=== PATIENT | male | born 1965 | race Caucasian/White ===

== ENCOUNTER → 2020-04-03 10:35 | Outpatient (BNVA) | payer OTHER, SELFPAY | PROVIDERS: Visit Provider Family Medicine | DX: E78.2 Mixed hyperlipidemia (principal); I10 Essential (primary) hypertension; Z12.5 Encounter for screening for malignant neoplasm of prostate | CPT/HCPCS: 80053; 80061; 84443; 85025; G0103 ==

== ENCOUNTER → 2020-07-01 08:24 | Outpatient (BNVA) | payer OTHER, SELFPAY | PROVIDERS: Visit Provider Family Medicine | DX: E78.2 Mixed hyperlipidemia (principal); I10 Essential (primary) hypertension | CPT/HCPCS: 80053; 80061; 85025 ==

== ENCOUNTER → 2020-12-30 10:10 | Outpatient (BNVA) | payer OTHER, SELFPAY | PROVIDERS: Visit Provider Family Medicine | DX: E78.2 Mixed hyperlipidemia (principal); I10 Essential (primary) hypertension | CPT/HCPCS: 80053; 80061; 85025 ==

== ENCOUNTER → 2021-06-30 09:03 | Outpatient (BNVA) | payer OTHER, SELFPAY | PROVIDERS: PCP Family Medicine; Visit Provider Family Medicine | DX: Z12.5 Encounter for screening for malignant neoplasm of prostate (principal); E78.5 Hyperlipidemia, unspecified; I10 Essential (primary) hypertension | CPT/HCPCS: 80053; 80061; 85025; G0103 ==

== ENCOUNTER → 2021-12-29 08:50 | Outpatient (BNVA) | payer OTHER, SELFPAY | PROVIDERS: PCP Family Medicine; Visit Provider Family Medicine | DX: E78.5 Hyperlipidemia, unspecified (principal); I10 Essential (primary) hypertension | CPT/HCPCS: 80053; 80061; 84443; 85025 ==

== ENCOUNTER → 2022-08-03 08:59 | Outpatient (BNVA) | payer OTHER, SELFPAY | PROVIDERS: PCP Family Medicine; Visit Provider Family Medicine | DX: I10 Essential (primary) hypertension (principal); E78.5 Hyperlipidemia, unspecified; Z12.5 Encounter for screening for malignant neoplasm of prostate | CPT/HCPCS: 80053; 80061; 84443; 85025; G0103 ==

== ENCOUNTER → 2023-02-01 09:20 | Outpatient (BNVA) | payer MEDICARE, OTHER, SELFPAY | PROVIDERS: PCP Family Medicine; Visit Provider Family Medicine | DX: I10 Essential (primary) hypertension (principal); E78.5 Hyperlipidemia, unspecified | CPT/HCPCS: 80053; 80061; 85025 ==

== ENCOUNTER → 2023-02-22 09:33 | Outpatient (BNVA) | payer MEDICARE, OTHER, SELFPAY | PROVIDERS: PCP Family Medicine; Visit Provider Podiatrist Foot & Ankle Surgery | DX: B35.1 Tinea unguium (principal); G62.9 Polyneuropathy, unspecified; I73.9 Peripheral vascular disease, unspecified | CPT/HCPCS: 11721 ==

== ENCOUNTER → 2023-05-17 09:13 | Outpatient (BNVA) | payer MEDICARE, OTHER, SELFPAY | PROVIDERS: PCP Family Medicine; Visit Provider Podiatrist Foot & Ankle Surgery | DX: B35.1 Tinea unguium (principal); G62.9 Polyneuropathy, unspecified; I73.9 Peripheral vascular disease, unspecified | CPT/HCPCS: 11721 ==

== ENCOUNTER → 2023-07-20 09:35 | Outpatient (BNVA) | payer MEDICARE, OTHER, SELFPAY | PROVIDERS: PCP Family Medicine; Visit Provider Podiatrist Foot & Ankle Surgery | DX: B35.1 Tinea unguium (principal); G62.9 Polyneuropathy, unspecified; I73.9 Peripheral vascular disease, unspecified | CPT/HCPCS: 11721 ==

== ENCOUNTER → 2023-08-02 09:36 | Outpatient (BNVA) | payer MEDICARE, OTHER, SELFPAY | PROVIDERS: PCP Family Medicine; Visit Provider Family Medicine | DX: Z79.899 Other long term (current) drug therapy (principal); E78.2 Mixed hyperlipidemia | CPT/HCPCS: 80053; 80061; 82306; 85025 ==

== ENCOUNTER → 2023-09-20 13:41 | Outpatient (BNVA) | payer MEDICARE, OTHER, SELFPAY | PROVIDERS: PCP Family Medicine; Visit Provider Podiatrist Foot & Ankle Surgery | DX: B35.1 Tinea unguium (principal); G62.9 Polyneuropathy, unspecified; I73.9 Peripheral vascular disease, unspecified | CPT/HCPCS: 11721 ==

== ENCOUNTER → 2023-11-22 13:40 | Outpatient (BNVA) | payer MEDICARE, OTHER, SELFPAY | PROVIDERS: PCP Family Medicine; Visit Provider Podiatrist Foot & Ankle Surgery | DX: B35.1 Tinea unguium (principal); G62.9 Polyneuropathy, unspecified; I73.9 Peripheral vascular disease, unspecified | CPT/HCPCS: 11721 ==

== ENCOUNTER → 2024-01-24 13:40 | Outpatient (BNVA) | payer MEDICARE, OTHER, SELFPAY | PROVIDERS: PCP Family Medicine; Visit Provider Podiatrist Foot & Ankle Surgery | DX: B35.1 Tinea unguium (principal); G62.9 Polyneuropathy, unspecified; I73.9 Peripheral vascular disease, unspecified | CPT/HCPCS: 11721 ==

== ENCOUNTER 2024-03-07 19:11 | Inpatient (IN) | payer MEDICARE, OTHER, SELFPAY ==
[2024-03-07] VITALS (8 sets, daily range): BP systolic 131–181; BP diastolic 75–88; PULSE 96–112; RESP 18–24; TEMP 37.2–37.6; O2SAT 3–97; BMI 36.0
--- NOTE | 2024-03-07 19:21 | CTR_ITS ---
PROCEDURE INFORMATION: Exam: CT Abdomen And Pelvis With Contrast Exam date and time: 03/07/2024 8:29 PM Age: 58 years old Clinical indication: Abdominal pain; Additional info: Abd pain TECHNIQUE: Imaging protocol: Computed tomography of the abdomen and pelvis with contrast. Sagittal and coronal reformatted images were created and reviewed. Radiation optimization: All CT scans at this facility use at least one of these dose optimization techniques: automated exposure control; mA and/or kV adjustment per patient size (includes targeted exams where dose is matched to clinical indication); or iterative reconstruction. Contrast material: OMNI 350; Contrast volume: 100 ml; Contrast route: INTRAVENOUS (IV); COMPARISON: No relevant prior studies available. RADIATION DOSE METRICS: Total DLP (mGy-cm): 964.45 FINDINGS: Lungs: Dependent atelectasis in the lungs bilaterally. Pleural spaces: No pleural effusion. Heart: Visualized portions of the heart are moderately enlarged. Liver: Simple cyst in the left lobe of the liver measuring 2.2 cm (series 3, image 18). 7.7 mm indeterminate hypodense focus in the posterior right lobe of the liver (series 3, image 24). Gallbladder and biliary ducts: The gallbladder is unremarkable. No biliary ductal dilatation. Pancreas: The pancreas is unremarkable. No pancreatic ductal dilatation. Spleen: The spleen is unremarkable. Adrenal glands: The right and left adrenal glands are unremarkable. Kidneys and ureters: Subcentimeter hypodense focus in the right kidney that is too small to characterize, however likely represents a small cyst. The left kidney is unremarkable. The right and left ureters are unremarkable. Stomach and bowel: There is a fecalith in the cecum. Numerous diverticula in the sigmoid colon. No evidence for diverticulitis. No acute abnormality in the stomach, small bowel, or colon. Appendix: 1.5 x 0.8 x 0.9 cm appendicolith at the base of the appendix (series 5, image 39 and series 3, image 57). The appendix is dilated, measuring 1.7 cm (series 5, image 40). Thickening and enhancement of the wall of the appendix. Areas of relative decreased enhancement and 1 focus of air in the superior wall of the appendix concerning for necrosis of the wall and possible impending appendiceal rupture. Extensive periappendiceal inflammation. Moderate amount of periappendiceal fluid. Intraperitoneal space: No free intraperitoneal air. No ascites. No loculated fluid collections to suggest an abscess. Vasculature: Mild atherosclerotic changes in the visualized arteries. No evidence for aortic aneurysm or aortic dissection. Hepatic veins, portal veins, splenic vein, and SMV are patent. Lymph nodes: No lymphadenopathy. Urinary bladder: Unremarkable as visualized. Reproductive: Unremarkable as visualized. Bones/joints: Patient has had previous bilateral hip arthroplasties. Multilevel degenerative changes of varying severity in the visualized spine. Mild degenerative changes at the right and left hips. Soft tissues: No acute abnormality in the extra-abdominal soft tissues. CT/CT abdomen pelvis w con* [id number] IMPRESSION: 1. Large appendicolith at the base of the appendix. Findings consistent with severe appendicitis. Associated findings concerning for necrosis of the superior wall of the appendix with possible impending appendiceal perforation. No free intraperitoneal air. No abscess. 2. Indeterminate hypodense focus in the liver. In a low-risk patient, this is most likely to be benign and no further follow-up is recommended. In a high-risk patient, follow-up MRI in 3-6 months is recommended (or earlier if warranted by the patient's specific clinical circumstances). (Reference: Sarah Beth) 3. Sigmoid diverticulosis. No evidence for diverticulitis. 4. Incidental/nonacute findings are listed in the report. COMMENTS: 1. THIS REPORT CONTAINS FINDINGS THAT MAY BE CRITICAL TO PATIENT CARE. The findings were verbally communicated via telephone conference with INDRA Farrar at 9:01 PM DIRECTOR SPEECH LANGUAGE on 03/07/2024. The findings were acknowledged and understood. 2. Consistent with the [employer]'s Incidental Findings Committee white paper (J Am Ray Radiol 2018): Any incidental renal lesion less than 1 cm or classified as too small to characterize, or any incidental cystic renal lesion characterized as simple-appearing, is likely benign. No follow-up imaging is recommended for these lesions per consensus recommendations based on imaging criteria. REFERENCES: Sarah Beth HERNANDEZ, et al. Management of Incidental Liver Lesions on CT: A White Paper of the ACR Incidental Findings Committee. J Am Ray Radiol. 2017;14(11):8768-3682.
--- NOTE | 2024-03-07 19:22 | ED_ITS ---
HPI - Abdominal Pain 2 General: Chief Complaint: Abdominal Pain Stated Complaint: ABD PAIN Time Seen by Provider: 03/07/24 19:12 Source: patient and EMS Mode of arrival: EMS Limitations: no limitations History of Present Illness: 58-year-old male states been having incr easing abdominal pain over the last 2 days. States pain is diffuse sharp in nature he rates it a 6 out of 10 he did receive Dilaudid and route and that did not improve the pain was still having pain denies any vomiting denies any fevers. Associated Symptoms: Denies chills and fever(s) Related Data Home Medications Medication Instructions Recorded Confirmed acetaminophen 500 mg tablet 500 mg PO Q6H PRN 12/20/19 01/24/24 (Tylenol Extra Strength) ibuprofen 200 mg tablet 200 mg PO Q6H PRN 12/20/19 01/24/24 Previous Rx's Medication Instructions Recorded amlodipine 10 mg tablet 10 mg PO DAILY #90 tabs 08/06/23 atorvastatin 10 mg tablet 10 mg PO DAILY #90 tabs 08/06/23 losartan 50 mg tablet 50 mg PO DAILY #90 tabs 08/06/23 Allergies Allergy/AdvReac Type Severity Reaction Status Date / Time lisinopril Allergy dry cough Verified 03/07/24 19:19 ubidecarenone Allergy ear Verified 03/07/24 19:19 [From H2Q CoQ10] discharge Review of Systems 2 Const: Denies: fever(s), chills, body aches or change in appetite ENMT: Denies: throat pain or dental pain Card: Denies: chest pain Resp: Denies: dyspnea GI: Reports: abdominal pain Musc: Denies: neck pain or back pain Skin/Breast: Denies: rash Neuro: Denies: headache(s) PFSH ED 2 PFSH: Medical History Hypertension Surgical History History of bilateral hip arthroplasty Family History Mother Heart disease Father Dementia Social History Smoking and tobacco/nicotine status: unknown if used tobacco/nicotine Quit status (tobacco/nicotine): has quit using Year quit tobacco: 2007 Former quit date comment: PPD x 20 yrs Second hand smoke exposure: No Alcohol intake: former Year of sobriety/quit date alcohol: 2020 Substance/Drug Use: never Caregiver/support person: Yes Lives independently: Yes Household members: spouse Marital status: Current occupational status: retired Current gender identity: Male Special misha needs: No Physical Exam 2 Const: COMMON NORMALS: no acute distress, patient oriented x3 and healthy appearing HENMT: COMMON NORMALS: normocephalic and atraumatic HEAD & SCALP: n ormocephalic and atraumatic Eye: COMMON NORMALS: conjunctivae normal CONJUNCTIVA: Yes conjunctivae normal Neck/C-Spine: COMMON NORMALS: full ROM and supple Chest: COMMONS NORMALS: normal inspection of the chest Resp: COMMON NORMALS: normal respiratory effort Cardio: COMMON NORMALS: regular rate, regular rhythm and No murmurs present (Cardio) RATE: regular rate RHYTHM: regular rhythm GI: COMMON NORMALS: Normal to inspection, nondistended, normoactive bowel sounds present, Soft to palpation and no masses PALPATION: Yes Soft to palpation OTHER: diffuse tenderness Extremity: COMMON NORMALS: normal to inspection and full ROM Neuro: COMMON NORMALS: patient oriented x3, moves all extremities and no focal motor deficits Psych: COMMON NORMALS: mental status grossly normal, Normal thought process present and cooperative THOUGHT PROCESS: Normal thought process present Skin: COMMON NORMALS: no rashes or lesions noted and no wounds GENERAL SKIN EXAM: no rashes or lesions noted Course 2 Vital Signs: Vital signs: Vital Signs Temperature 99.0 F 03/07/24 19:12 Pulse Rate 105 H 03/07/24 20:30 Respiratory Rate 20 H 03/07/24 20:30 Blood Pressure 146/75 03/07/24 20:30 Pulse Oximetry 97 03/07/24 20:30 Oxygen Delivery Me thod Room Air 03/07/24 19:12 MDM - Abdominal Pain Medical Decision Making Patient presents with appendicitis I reviewed film along with radiology read with surgeon will admit to him start antibiotics patient's pain here is improved. Medical Records I reviewed the patient's medical records. Lab Data I reviewed the patient's lab results. 03/07/24 19:20 03/07/24 19:20 Labs/Radiology: Radiology Impressions Abdomen/Pelvis CT 03/07/24 19:21 IMPRESSION: 1. Large appendicolith at the base of the appendix. Findings consistent with severe appendicitis. Associated findings concerning for necrosis of the superior wall of the appendix with possible impending appendiceal perforation. No free intraperitoneal air. No abscess. 2. Indeterminate hypodense focus in the liver. In a low-risk patient, this is most likely to be benign and no further follow-up is recommended. In a high-risk patient, follow-up MRI in 3-6 months is recommended (or earlier if warranted by the patient's specific clinical circumstances). (Reference: Sarah Beth) 3. Sigmoid diverticulosis. No evidence for diverticulitis. 4. Incidental/nonacute findings are listed in the report. COMMENTS: 1. THIS REPORT CONTAINS FINDINGS THAT MAY BE CRITICAL TO PATIENT CARE. The findings were verbally communicated via telephone conference with INDRA Farrar at 9:01 PM SEASONAL DELIVERY DRIVER on 03/07/2024. The findings were acknowledged and understood. 2. Consistent with the [employer]'s Incidental Findings Committee white paper (J Am Ray Radiol 2018): Any incidental renal lesion less than 1 cm or classified as too small to characterize, or any incidental cystic renal lesion characterized as simple-appearing, is likely benign. No follow-up imaging is recommended for these lesions per consensus recommendations based on imaging criteria. REFERENCES: Sarah Beth HERNANDEZ, et al. Management of Incidental Liver Lesions on CT: A White Paper of the ACR Incidental Findings Committee. J Am Ray Radiol. 2017;14(11):6598-5148. Laboratory Results WBC 21.42 10^3/uL (3.29-11.43) H 03/07/24 19:20 RBC 5.03 10^6/uL (3.85-5.65) 03/07/24 19:20 Hgb 15.30 g/dL (11.27-16.99) 03/07/24 19:20 Hct 44.5 % (37-53) 03/07/24 19:20 MCV 88.5 fl (82-101) 03/07/24 19:20 MCH 30.4 pg (27-33) 03/07/24 19:20 MCHC 34.4 g/dL (30-55) 03/07/24 19:20 RDW 12.9 % (12.1-15.1) 03/07/24 19:20 Plt Count 312 10^3/cmm (157-399) 03/07/24 19:20 MPV 9.8 fL (7.4-10.4) 03/07/24 19:20 Neut % (Auto) 77.2 % 03/07/24 19:20 Lymph % (Auto) 7.2 % 03/07/24 19:20 [place] % (Auto) 9.3 % 03/07/24 19:20 Eos % (Auto) 5.4 % 03/07/24 19:20 Baso % (Auto) 0.3 % 03/07/24 19:20 Neut # (Auto) 16.56 10^3/uL (1.8-7.7) H 03/07/24 19:20 Lymph # (Auto) 1.5 10^3/uL (0.8-4.8) 03/07/24 19:20 [place] # (Auto) 2.0 10^3/uL (0.2-0.9) H 03/07/24 19:20 Eos # (Auto) 1.2 10^3/uL (0.0-0.8) H 03/07/24 19:20 Baso # (Auto) 0.1 10^3/uL (0.0-0.1) 03/07/24 19:20 Nucleated RBC % (auto) 0 % 03/07/24 19:20 Nucleated RBCs # 0.0 /100WBC 03/07/24 19:20 Sodium 128 mmol/L (136-145) L 03/07/24 19:20 Potassium 4.2 mmol/L (3.5-5.1) 03/07/24 19:20 Chloride 93 mmol/L (98-107) L 03/07/24 19:20 Carbon Dioxide 22 mmol/L (22-29) 03/07/24 19:20 Anion Gap 17.2 (5-19) 03/07/24 19:20 BUN 14 mg/dL (8-23) 03/07/24 19:20 Creatinine 0.7 mg/dL (0.7-1.2) 03/07/24 19:20 GFR Calculation 115.0 mL/min (90-130) 03/07/24 19:20 Glucose 170 mg/dL (65-115) H 03/07/24 19:20 Calculated Osmolality 270 mOsm/kg (285-295) L 03/07/24 19:20 Lactic Acid 2.2 mmol/L (0.5-2.2) 03/07/24 19:30 Calcium 9.2 mg/dL (8.5-10.5) 03/07/24 19:20 Total Bilirubin 0.7 mg/dL (0.15-1.2) 03/07/24 19:20 AST 15 U/L (0-40) 03/07/24 19:20 ALT 19 U/L (0-41) 03/07/24 19:20 Alkaline Phosphatase 55 U/L (40-130) 03/07/24 19:20 Total Protein 7.6 g/dL (6.6-8.7) 03/07/24 19:20 Albumin 4.2 g/dL (3.5-5.2) 03/07/24 19:20 Globulin 3.4 g/dL (1.3-4.6) 03/07/24 19:20 Lipase 14 U/L (13-60) 03/07/24 19:20 All radiology interpretation(s) finalized by discharge Discharge Plan Discharge Patient Disposition: Admitted As Inpatient Clinical Impression: Acute appendicitis Condition: Stable Prescriptions: No Action ibuprofen 200 mg tablet 200 mg PO Q6H PRN acetaminophen [Tylenol Extra Strength] 500 mg tablet 500 mg PO Q6H PRN amlodipine 10 mg tablet 10 mg PO DAILY Qty: 90 3RF atorvastatin 10 mg tablet 10 mg PO DAILY Qty: 90 3RF losartan 50 mg tablet 50 mg PO DAILY Qty: 90 3RF Referrals: Bree Bryan MD [Primary Care Provider] - Patient Instructions: Appendicitis (GEN) Coding Level of Care Code ED Donor Relations Coordinator for [employer]
--- NOTE | 2024-03-07 19:29 | ECG_ITS ---
[facility]24[facility]07 Pat Name: Isai Hussein Department: Room: Gender: Male Customer Operations Representative: : 1965 Requested By: Mary Petersen Order Number: [id number] Shonna MD: Altagracia Alex M.D. Measurements Intervals [place] Rate: 105 P: 44 [place]: 140 QRS: 22 QRSD: 93 T: 33 QT: 337 QTc: 446 Interpretive Statements SINUS TACHYCARDIA POSSIBLE LEFT ATRIAL ENLARGEMENT [-0.1mV P-WAVE IN V1/V2] ABNORMAL RHYTHM ECG No previous ECG available for comparison Electronically Signed On 03-08-2024 01:03:13 [employer] by Altagracia Alex M.D. [email or web address]
[2024-03-07 19:36] LABS: Basophils # 0.1 10^3/uL (0.0-0.1); Basophils % 0.3 %; Eosinophils # 1.2 10^3/uL (0.0-0.8); Eosinophils % 5.4 %; Hematocrit 44.5 % (37-53); Lymphocytes # 1.5 10^3/uL (0.8-4.8); Lymphocytes % 7.2 %; Mean Corpuscular HGB Conc 34.4 g/dL (30-55); Mean Corpuscular Hemoglobin 30.4 pg (27-33); Mean Corpuscular Volume 88.5 fl (82-101); Mean Platelet Volume 9.8 fL (7.4-10.4); Monocytes % 9.3 %; Neutrophils # 16.56 10^3/uL (1.8-7.7); Neutrophils % 77.2 %; Nucleated Red Blood Cells % 0 %; Platelet Count 312 10^3/cmm (157-399); Red Blood Count 5.03 10^6/uL (3.85-5.65); Red Cell Distribution Width 12.9 % (12.1-15.1); White Blood Count 21.42 10^3/uL (3.29-11.43)
[2024-03-07 19:55] LABS: Alanine Aminotransferase 19 U/L (0-41); Albumin Level 4.2 g/dL (3.5-5.2); Alkaline Phosphatase 55 U/L (40-130); Anion Gap 17.2 (5-19); Aspartate Amino Transferase 15 U/L (0-40); Blood Urea Nitrogen 14 mg/dL (8-23); Calcium 9.2 mg/dL (8.5-10.5); Carbon Dioxide 22 mmol/L (22-29); Chloride 93 mmol/L (98-107); Creatinine Clr Calc Pharmacy 129.1911; Globulin 3.4 g/dL (1.3-4.6); Glucose 170 mg/dL (65-115); Lipase 14 U/L (13-60); Osmolality Calculated 270 mOsm/kg (285-295); Potassium 4.2 mmol/L (3.5-5.1); Sodium 128 mmol/L (136-145); Total Bilirubin 0.7 mg/dL (0.15-1.2); Total Protein 7.6 g/dL (6.6-8.7)
[2024-03-07 20:01] LABS: Slide Review Slide Review Perform
[2024-03-07 20:09] LABS: Lactic Sepsis W/Reflex 2.2 mmol/L (0.5-2.2)
[2024-03-07] MEDS: sodium chloride 0.9% 1,000 ML 999 ML IV (20:21)
[2024-03-07] MEDS: iohexol 350 mg/mL 500 mL Btl (per mL) IV (20:30)
[2024-03-07] MEDS: HYDROmorphone 1 mg/mL INJ 1 mL IVP ×2 (21:12→22:50)
--- NOTE | 2024-03-07 21:21 | PC.NURSE ---
Report called to Angela on med surg. 2119.
[2024-03-07 21:26] LABS: Reflex Lactate Order REFLEX LACTIC ORDERD
[2024-03-07] MEDS: piperacillin-tazobactam 3.375 GM in sodium chloride 0.9% (plus) 50 ML IV (21:45)
[2024-03-07] MEDS: morphine 4 mg/mL SDV 1 mL IVP (21:54)
[2024-03-07] MEDS: lactated ringers 1,000 ML 125 ML IV (22:22)
[2024-03-07 22:50] LABS: Lactic Acid level (Lactate) 1.6 mmol/L (0.5-2.2)
[2024-03-07 23:51] LABS: Add Urine Microscopic? YES; Bilirubin Urine Negative (Negative); Blood Urine Negative (Negative); Glucose Urine UA Negative (Normal); Ketones Urine Negative (Negative); Leukocyte Esterase Urine Negative (Negative); Nitrate Urine Negative (Negative); Protein Urine 1+ (Negative); RBC Urine 0-4 /hpf (0-2); Specific Gravity, Urine >= 1.099 (1.005-1.030); UA Manual Slide Review YES; Urine Appearance Clear (CLEAR); Urine Color Yellow (Yellow); pH Urine 5.5 (5-7)
[2024-03-08] VITALS (22 sets, daily range): BP systolic 108–149; BP diastolic 66–98; PULSE 86–117; RESP 12–20; TEMP 36.7–39.3; O2SAT 88–99
[2024-03-08] MEDS: HYDROmorphone 1 mg/mL INJ 1 mL IVP ×6 (01:11→17:35)
[2024-03-08] MEDS: piperacillin-tazobactam 3.375 GM in sodium chloride 0.9% (plus) 50 ML IV ×3 (03:58→17:31)
[2024-03-08] MEDS: acetaminophen 1,000 MG/100 ML PIGGYBACK 400 MG IV (04:33)
[2024-03-08] MEDS: lactated ringers 1,000 ML 125 ML IV ×2 (06:53→15:00)
--- NOTE | 2024-03-08 09:33 | PC.CHAP ---
Pastoral Care Encounter/Spiritual Assessment Type of Contact [] Declined reservations agent visit [] Patient/Family/Request visit [] Outpatient visit [] Follow-up visit [] Physician referral [] Code/Alert [x] Routine visit [] Staff referral [] Actively dying [] Patient sleeping [x] Family support [] [] Out of room [] Palliative care [] [] Receiving care in room [] Pre-surgical visit [] Trauma [] Long length of stay [] ICU visit [] Other: Relational/Emotional Strength [x] Patient feels connected with others/family/visitors/staff [] Distress [] Loneliness/isolation [] Abandonment Spirituality of Patient [x] Person of Keisha [] Attends Mandaeism of their Keisha [x] Believes in Prayer [] Reads Bible or Anabaptist materials [] There are Spiritual issues to be addressed Qm Nurse Interventions [x] Prayer [x] Active listening [x] Non-anxious presence [x] Spiritual/emotional support [] Crisis/trauma care [] Spiritual counseling [] Bereavement support [] Provided bereavement packet [] Provided Bible/devotional materials [] Provided toy/stuffed animal, coloring book to patient or family member [] Provided Communion [] Anointing/Skippers [] Salvation [x] Completed spiritual assessment [] Other: Impact on Illness or Injury [] Angry [] Fearful [] Anxious [] Often cries [] Exhaustion [] Unable to work [] Unable to attend amish [] Unable to walk/stand [] Unable to read [] Unable to drive [] Unable to eat/drink [] Unable to sleep [] Unable to be with family [] Patient intubated [] Other: Summary Time spent with patient 5 min
--- NOTE | 2024-03-08 14:18 | P.ANESASSM_ITS ---
Pre-Anesthetic Assessment Height/Weight: Height 5 ft 7 in Weight 230 lb Temp Pulse Resp BP Pulse Ox O2 Del Method O2 Flow Rate 98.3 F 101 H 18 128/71 91 Nasal Cannula 3 03/08/24 11:45 03/08/24 11:45 03/08/24 14:12 03/08/24 11:45 03/08/24 11:45 03/08/24 11:45 03/07/24 21:00 Preop Diagnosis: Acute appendicitis Operation Date: 03/08/24 17:35 Proposed Procedures p Laparoscopic Appendectomy(Not Applicable) - Ricky Haque, DO Was Beta Ignacio taken within 24 hours: N/A Was Clonidine taken within 24 hours: N/A Social No alcohol and No tobacco Exam alert, oriented x 3, clear to auscultation bilaterally and regular rate & rhythm Airway Submandibular: within normal limits Cervical ROM: within normal limits Mallampati: Class II Dentition: full Comments: Comments: Implants on the top front Anesthetic Plan ASA status: 3 Anesthesia: General Other: No prior issues with anesthesia, patient did his front implants knocked out with intubation during a prior anesthetic NPO since yesterday Acute appendicitis noted, WBC 21.4 Labs reviewed from yesterday and acceptable for procedure, hyponatremia noted NA 128 EKG showing sinus tachycardia History of hypertension on amlodipine and losartan Plan for GETA Medications/Allergies Home Medications Medication Instructions Recorded Confirmed Last Taken Type acetaminophen 500 mg tablet 500 mg PO Q6H PRN Pain 12/20/19 03/08/24 Unknown History (Tylenol Extra Strength) ibuprofen 200 mg tablet 200 mg PO Q6H PRN Pain 12/20/19 03/08/24 Unknown History amlodipine 10 mg tablet 10 mg PO DAILY #90 tabs 08/06/23 03/08/24 Unknown Rx atorvastatin 10 mg tablet 10 mg PO DAILY #90 tabs 08/06/23 03/08/24 Unknown Rx losartan 50 mg tablet 50 mg PO DAILY #90 tabs 08/06/23 03/08/24 Unknown Rx Allergies Allergy/AdvReac Type Severity Reaction Status Date / Time lisinopril Allergy dry cough Verified 03/07/24 19:19 ubidecarenone Allergy ear Verified 03/07/24 19:19 [From H2Q CoQ10] discharge Current Medications Generic Name Dose Route Start Last Admin Trade Name Freq PRN Reason Stop Dose Admin Hydromorphone HCl 1 mg 03/07/24 21:58 03/08/24 14:12 Hydromorphone 1 Mg/Ml Inj 1 Ml IVP 1 mg Q3H PRN Administration pain Lactated Ringer's 1,000 mls @ 125 mls/hr 03/07/24 22:00 03/08/24 06:53 Lactated Ringers IV 125 mls/hr .Q8H LORENZA Administration PFSH Anesthesia Medical History Hypertension Surgical History History of bilateral hip arthroplasty Family History Mother Heart disease Father Dementia Social History Smoking and tobacco/nicotine status: unknown if used tobacco/nicotine Quit status (tobacco/nicotine): has quit using Year quit tobacco: 2007 Former quit date comment: PPD x 20 yrs Second hand smoke exposure: No Alcohol intake: former Year of sobriety/quit date alcohol: 2020 Substance/Drug Use: never Caregiver/support person: Yes Lives independently: Yes Household members: spouse Marital status: Current occupational status: retired Current gender identity: Male Special misha needs: No Data Anesthesia 03/07/24 19:20 03/07/24 19:20 Short CBC 03/07/24 Range/Units 19:20 WBC 21.42 H (3.29-11.43) 10^3/uL Hgb 15.30 (11.27-16.99) g/dL Hct 44.5 (37-53) % MCV 88.5 (82-101) fl Plt Count 312 (157-399) 10^3/cmm Neut % (Auto) 77.2 % Neut # (Auto) 16.56 H (1.8-7.7) 10^3/uL BMP 03/07/24 19:20 Sodium 128 L Potassium 4.2 Chloride 93 L Carbon Dioxide 22 BUN 14 Creatinine 0.7 Glucose 170 H Calcium 9.2 Liver Function 03/07/24 Range/Units 19:20 Total Bilirubin 0.7 (0.15-1.2) mg/dL AST 15 (0-40) U/L ALT 19 (0-41) U/L Alkaline Phosphatase 55 (40-130) U/L Albumin 4.2 (3.5-5.2) g/dL Urine 03/07/24 Range/Units 22:50 Urine Color Yellow (Yellow) Urine Appearance Clear (CLEAR) Urine pH 5.5 (5-7) Ur Specific [place] >= 1.099 H (1.005-1.030) Urine Protein 1+ A (Negative) Urine Glucose (UA) Negative (Normal) Urine Ketones Negative (Negative) Urine Nitrate Negative (Negative) Urine Bilirubin Negative (Negative) Ur Leukocyte Esterase Negative (Negative) Urine RBC 0-4 H (0-2) /hpf Urine WBC None (0-5) /hpf Microbiology 03/07/24 22:15 Blood Culture - Preliminary Blood SPECIMEN COLLECTED 03/07/24 22:10 Blood Culture - Preliminary Blood SPECIMEN COLLECTED Cardiac Studies: 2 No Data to Display
--- NOTE | 2024-03-08 17:04 | P.HP_ITS ---
Providers/Chief Complaint 2 Admitting Physician: Yeyo Guajardo MD Primary Care Provider: Bree Bryan MD Chief Complaint: ABD PAIN History of Present Illness Isai Hussein is a 58 year old male hospital 1 day history of right lower quadrant abdominal pain. Pain does not radiate. Palpation and movement make the pain worse. Nothing makes pain better. He denies any nausea, emesis, diarrhea, constipation, hematochezia and/or melena. CT of the abdomen and pelvis shows acute appendicitis. Review of Systems 2 General: Reports: 10 or more systems reviewed and unremarkable except in HPI and below Medications/Allergies Home Medications Medication Instructions Recorded Confirmed Last Taken Type acetaminophen 500 mg tablet 500 mg PO Q6H PRN Pain 12/20/19 03/08/24 Unknown History (Tylenol Extra Strength) ibuprofen 200 mg tablet 200 mg PO Q6H PRN Pain 12/20/19 03/08/24 Unknown History amlodipine 10 mg tablet 10 mg PO DAILY #90 tabs 08/06/23 03/08/24 Unknown Rx atorvastatin 10 mg tablet 10 mg PO DAILY #90 tabs 08/06/23 03/08/24 Unknown Rx losartan 50 mg tablet 50 mg PO DAILY #90 tabs 08/06/23 03/08/24 Unknown Rx Allergies Allergy/AdvReac Type Severity Reaction Status Date / Time lisinopril Allergy dry cough Verified 03/07/24 19:19 ubidecarenone Allergy ear Verified 03/07/24 19:19 [From H2Q CoQ10] discharge PFSH Acute 2 PFSH: Medical History Hypertension Surgical History History of bilateral hip arthroplasty Family History Mother Heart disease Father Dementia Social History Smoking and tobacco/nicotine status: unknown if used tobacco/nicotine Quit status (tobacco/nicotine): has quit using Year quit tobacco: 2007 Former quit date comment: PPD x 20 yrs Second hand smoke exposure: No Alcohol intake: former Year of sobriety/quit date alcohol: 2020 Substance/Drug Use: never Caregiver/support person: Yes Lives independently: Yes Household members: spouse Marital status: Current occupational status: retired Current gender identity: Male Special misha needs: No Vitals/I&O/Wt Last Vital Signs Temp 98.0 F 03/08/24 16:04 Pulse 86 03/08/24 16:04 Resp 18 03/08/24 16:04 BP 122/66 03/08/24 16:04 Pulse Ox 92 03/08/24 16:04 O2 Del Method Nasal Cannula 03/08/24 16:04 O2 Flow Rate 3 03/07/24 21:00 03/08/24 03/08/24 03/08/24 06:59 14:59 22:59 Intake Total 1150 / 2700 1050 / 1050 Output Total 600 / 600 Balance 550 / 2100 1050 / 1050 Weight last 48 hrs Weight 230 lb Weight 230 lb Weight 230 lb Physical Exam 2 Narrative: General : Patient is well developed , no acute distress, oriented x3 Head : Normal cephalic, a-traumatic. Ears : Pinnae and external canal are normal. Hearing is normal. Eyes : PERRLA, Sclera and injection are normal. No conjunctival discharge. Nose : Mucous membranes are without erythema. Throat : buccal mucosa is normal, gums are without significant recession or hypertrophy. Lungs : Equal chest rise bilaterally, no use of accessory muscles, trachea is midline. Cor : Rate and rhythm are normal. Abdomen : Soft, ND, tender right lower quadrant, negative Rovsing's, no g/r/m Extremities : No edema, no cyanosis or clubbing, dorsalis pedis pulses are present bilaterally, non-tender to palpation of calves. Upper extremities are normal bilaterally. Back : non-tender to palpation, no CVA tenderness. Neuro : CN II - XII intact, Upper and lower extremities have equal and full strength Urinary Catheter Management: Phipps: Cath Placed During This Visit: yes Reason for Continuing Indwelling Catheter: Acute Urinary Retention or Obstruction Urinary Catheter Date of Insertion: 03/08/24 Urinary Catheter Time of Insertion: 04:00 Data 03/07/24 19:20 03/07/24 19:20 Micro: Microbiology 03/07/24 22:15 Blood Culture - Preliminary Blood SPECIMEN COLLECTED 03/07/24 22:10 Blood Culture - Preliminary Blood SPECIMEN COLLECTED A&P Assessment and plan (1) Acute appendicitis: Plan Pain control IV antibiotics Laparoscopic Appendectomy The risks and benefits of the procedure, including but not limited to, bleeding, infection, scar, numbness, pain, damage to surrounding structures, conversion to an open procedure, were explained to the patient. He is understanding of the risks and wishes to proceed. Attestations 2 Medical Necessity Statement*: Patient may require 1 or more nights in the hospital following appendectomy depending on intraoperative findings Coding Level of Care Code 73363 Diagnoses Acute appendicitis K35.80
--- NOTE | 2024-03-08 17:10 | PC.NURSE ---
pt to or at approx. 1700
[2024-03-08] MEDS: sodium chloride 0.9% 1,000 ML 30 ML IV (17:30)
[2024-03-08] MEDS: ondansetron 2 mg/ML SDV 2 mL 4 MG IVP (17:38)
[2024-03-08] MEDS: lidocaine-epi 2% PF 1:200,000 20 mL SDV XX (18:43)
--- NOTE | 2024-03-08 19:07 | PM.OP ---
Operative Report Date of procedure: March 08, 2024 Pre-op diagnosis: Acute appendicitis Post-op diagnosis: Acute perforated and gangrenous appendicitis with abscess formation Procedure done: Laparoscopic appendectomy Implants: 19 [place] German drain Specimens removed/disposition: Appendix Surgeon: Ricky Haque DO Anesthesia: General and Local Estimated blood loss (mL): 5 Complications: None apparent Findings: Appendiceal perforation with gangrene and with exudate throughout the abdomen Brief History: 58-year-old gentleman who presented to the hospital with acute appendicitis. Laparoscopic appendectomy was indicated. The risks and benefits were explained and documented. Procedure: Patient was wheeled into the operative room and placed on the OR table in a supine position. Abdomen was inspected prepped and draped in usual sterile fashion. Time-out was performed and all present were in agreement. A 15 blade scalp was used to make a stab incision in the left upper quadrant and intra-abdominal insufflation was achieved using a Veress needle. After localizing the tissue incisions were made and a 12 millimeter trocar was placed into the umbilicus as well as a 5mm in the right lower quadrant and a 5 mm in the left lower quadrant. Dense exudate could be seen throughout the abdomen. There is a very small working field due to the amount of adhesions and edematous bowel. The appendix was identified in the right lower quadrant was found to be gangrenous and perforated with surrounding abscess. I used the laparoscopic ligature to ligate the mesoappendix at the base. I then used 2 PDS endo-loops to snare the base of the appendix. I then used the laparoscopic ligature to ligate the appendix distally. The appendix was removed from the abdomen using an Endo-Catch bag through the umbilical incision. The peel-away some of the densest exudate and suctioned it out of the abdomen. There was purulence in the pelvis which I irrigated and suctioned. The area where the appendix was was spot irrigated and suctioned. Further suctioning was done throughout the abdomen. No other abscess cavities were identified. A 19 [place] German drain was placed through the right lower quadrant port going down the right paracolic gutter and into the pelvis. I covered the drain in the right lower quadrant with inflamed omentum and used a 5 mm clip construction safety manager to clip the omentum to the lateral abdominal wall, securing the drain into the cavity where the appendix and previous abscess was. Hemostasis was noted. I then closed the umbilical site with a Haresh-Jazmyn and 0 Vicryl suture in a figure of 8 fashion. All ports removed. Skin was washed and dried. Incisions were closed with 4 O nylon in a simple interrupted fashion. The drain was sewn in place with 3-0 silk. Sterile bandages were applied. Patient tolerated the procedure well.
[2024-03-08] MEDS: albuterol 2.5 mg/3 mL Neb INHALATION (19:46)
--- NOTE | 2024-03-08 20:18 | ANE.PACU2 ---
Inpatient post-anesthesia follow up: Airway intact: Yes Vital signs: Temperature 98.2 F Pulse Rate 105 Respiratory Rate 18 Blood Pressure 155/91 Pulse Oximetry 94 Oxygen Delivery Me thod Nasal Cannula Oxygen Flow Rate 10 Fraction of Inspir ed Oxygen 3 Hydration adequate: Yes Nausea and vomiting: No Pain level: 1 Mental status: Baseline
[2024-03-09] VITALS (9 sets, daily range): BP systolic 121–161; BP diastolic 76–91; PULSE 77–107; RESP 17–20; TEMP 36.5–37.2; O2SAT 93–98
[2024-03-09] MEDS: piperacillin-tazobactam 3.375 GM in sodium chloride 0.9% (plus) 50 ML IV ×3 (01:51→20:13)
[2024-03-09] MEDS: HYDROmorphone 1 mg/mL INJ 1 mL IVP (01:57)
[2024-03-09] MEDS: lactated ringers 1,000 ML 125 ML IV (10:35)
--- NOTE | 2024-03-09 10:45 | P.PN_ITS ---
Subjective 2 Subjective: Patient seen and examined. Pain controlled. Tolerating diet Vitals/I&O/Wt Last Vital Signs Temp 97.7 F 03/09/24 07:13 Pulse 85 03/09/24 07:13 Resp 18 03/09/24 07:13 BP 143/76 03/09/24 07:13 Pulse Ox 95 03/09/24 07:13 O2 Del Method Nasal Cannula 03/09/24 07:13 O2 Flow Rate 10 03/09/24 04:19 FiO2 3 03/08/24 20:41 03/08/24 03/09/24 03/09/24 22:59 06:59 14:59 Intake Total 530.417 / 7328.272 3392.583 / 2850.000 360 / 360 Output Total 810 / 810 500 / 1310 Balance -279.583 / 770.417 769.583 / 1540.000 360 / 360 Weight last 48 hrs Weight 230 lb 9.6 oz Weight 230 lb Weight 230 lb Weight 230 lb Physical Exam 2 Narrative: General: No acute distress, awake alert and oriented x 3 Abdomen: Soft, mildly distended, appropriately tender, no guarding or rebound Drain: Serosanguineous Urinary Catheter Management: Phipps: Cath Placed During This Visit: yes Reason for Continuing Indwelling Catheter: Other Urinary Catheter Date of Insertion: 03/08/24 Urinary Catheter Time of Insertion: 04:00 Data 03/07/24 19:20 03/07/24 19:20 Micro: Microbiology 03/07/24 22:15 Blood Culture - Preliminary Blood NEGATIVE TO DATE 03/07/24 22:10 Blood Culture - Preliminary Blood NEGATIVE TO DATE A&P Assessment and plan (1) Acute gangrenous appendicitis with perforation and peritonitis: Plan Postoperative day #1 status post laparoscopic appendectomy with drain placement for acute gangrenous and perforated appendicitis with abscess formation Continue antibiotics DC Phipps Pain control Regular diet Patient will need to stay for 5 days for IV antibiotics and repeat CT prior to drain removal and discharge home I am going out of town until Wednesday. Dr. Costa Riley will be covering until then Attestations 2 Medical Necessity Statement*: Patient will need to stay for 5 days for IV antibiotics and repeat CT prior to drain removal and discharge home after laparoscopic appendectomy for acute gangrenous and perforated appendicitis with abscess formation Coding Level of Care Code Acute Code for [facility] Diagnoses Acute gangrenous appendicitis with perforation and peritonitis K35.32
[2024-03-09 10:55] LABS: Basophils % 0.2 %; Lymphocytes # 0.8 10^3/uL (0.8-4.8); Lymphocytes % 4.9 %; Mean Corpuscular HGB Conc 32.9 g/dL (30-55); Mean Corpuscular Hemoglobin 30.2 pg (27-33); Mean Corpuscular Volume 91.7 fl (82-101); Mean Platelet Volume 9.6 fL (7.4-10.4); Monocytes # 1.1 10^3/uL (0.2-0.9); Monocytes % 6.6 %; Neutrophils # 14.96 10^3/uL (1.8-7.7); Neutrophils % 87.8 %; Nucleated Red Blood Cells % 0 %; Platelet Count 236 10^3/cmm (157-399); Red Blood Count 4.47 10^6/uL (3.85-5.65); Red Cell Distribution Width 13.1 % (12.1-15.1); White Blood Count 17.03 10^3/uL (3.29-11.43)
[2024-03-09 11:21] LABS: Anion Gap 14.5 (5-19); Blood Urea Nitrogen 19 mg/dL (8-23); Calcium 9.1 mg/dL (8.5-10.5); Carbon Dioxide 25 mmol/L (22-29); Chloride 97 mmol/L (98-107); Creatinine Clr Calc Pharmacy 113.1933; Glomerular Filtration Rate 98.6 mL/min (90-130); Glucose 125 mg/dL (65-115); Magnesium 2.7 mg/dL (1.7-2.3); Osmolality Calculated 278 mOsm/kg (285-295); Potassium 4.5 mmol/L (3.5-5.1); Sodium 132 mmol/L (136-145)
[2024-03-09] MEDS: heparin 5,000 unit/mL INJ 1 mL 5000 UNIT SUBCUT ×2 (11:55→23:33)
[2024-03-09] MEDS: HYDROcodone-acetaminophen 7.5-325 mg Tablet 1 TAB PO (11:55)
[2024-03-09 13:17] LABS: Acinetobacter baumannii Not Detected (NOT DETECT); Bacteroides fragilis Not Detected (NOT DETECT); Citrobacter Not Detected (NOT DETECT); Cronobacter sakazakii Not Detected (NOT DETECT); Enterobacter cloacae complex Not Detected (NOT DETECT); Enterobacter non cloacae Not Detected (NOT DETECT); Fusobacterium necrophorum Not Detected (NOT DETECT); Fusobacterium nucleatum Not Detected (NOT DETECT); Haemophilus influenzae Not Detected (NOT DETECT); Klebsiella pneumoniae group Not Detected (NOT DETECT); Morganella morganii Not Detected (NOT DETECT); Neisseria meningitidis Not Detected (NOT DETECT); Pan Candida Not Detected (NOT DETECT); Pan Gram-Positive Not Detected (NOT DETECT); Proteus mirabilis Not Detected (NOT DETECT); Pseudomonas aeruginosa Not Detected (NOT DETECT); Salmonella Not Detected (NOT DETECT); Serratia Not Detected (NOT DETECT); Serratia marcescens Not Detected (NOT DETECT); Stenotrophomonas maltophilia Not Detected (NOT DETECT)
[2024-03-09 15:03] LABS: Bacillus cereus group Not Detected (NOT DETECT); Bacillus subtillis group Not Detected (NOT DETECT); Corynebacterium Not Detected (NOT DETECT); Cutibacterium acnes (P.acnes) Not Detected (NOT DETECT); Enterococcus Not Detected (NOT DETECT); Enterococcus faecalis Not Detected (NOT DETECT); Enterococcus faecium Not Detected (NOT DETECT); Lactobacillus species Not Detected (NOT DETECT); Listeria Not Detected (NOT DETECT); Listeria monocytogenes Not Detected (NOT DETECT); Micrococcus Not Detected (NOT DETECT); Pan Candida Not Detected (NOT DETECT); Pan Gram-Negative Not Detected (NOT DETECT); Staphylococcus epidermidis Not Detected (NOT DETECT); Staphylococcus lugdunensis Not Detected (NOT DETECT); Staphylococcus species Not Detected (NOT DETECT); Streptococcus agalactiae Not Detected (NOT DETECT); Streptococcus anginosus group Not Detected (NOT DETECT); Streptococcus pneumoniae Not Detected (NOT DETECT); Streptococcus pyogenes Not Detected (NOT DETECT); Streptococcus species Not Detected (NOT DETECT)
[2024-03-09] MEDS: ketorolac 30 mg/mL INJ 15 MG IVP ×2 (17:54→23:33)
[2024-03-10] MEDS: lactated ringers 1,000 ML 125 ML IV (01:09)
[2024-03-10] MEDS: piperacillin-tazobactam 3.375 GM in sodium chloride 0.9% (plus) 50 ML IV ×3 (03:43→19:46)
[2024-03-10 04:00] VITALS: BP 166/79; PULSE 91; RESP 17; TEMP 36.9; O2SAT 96
[2024-03-10] MEDS: ketorolac 30 mg/mL INJ 15 MG IVP (05:20)
[2024-03-10 05:30] LABS: Basophils % 0.2 %; Eosinophils % 0.3 %; Hematocrit 40.2 % (37-53); Lymphocytes % 7.6 %; Mean Corpuscular HGB Conc 33.1 g/dL (30-55); Mean Corpuscular Volume 90.7 fl (82-101); Mean Platelet Volume 9.9 fL (7.4-10.4); Monocytes # 1.1 10^3/uL (0.2-0.9); Monocytes % 8.4 %; Neutrophils # 11.15 10^3/uL (1.8-7.7); Neutrophils % 82.8 %; Nucleated Red Blood Cells % 0 %; Platelet Count 259 10^3/cmm (157-399); Red Blood Count 4.43 10^6/uL (3.85-5.65); White Blood Count 13.47 10^3/uL (3.29-11.43)
[2024-03-10 06:10] LABS: Anion Gap 13.9 (5-19); Blood Urea Nitrogen 20 mg/dL (8-23); Calcium 8.8 mg/dL (8.5-10.5); Carbon Dioxide 26 mmol/L (22-29); Chloride 97 mmol/L (98-107); Creatinine Clr Calc Pharmacy 113.1683; Glomerular Filtration Rate 98.6 mL/min (90-130); Glucose 111 mg/dL (65-115); Magnesium 2.5 mg/dL (1.7-2.3); Osmolality Calculated 279 mOsm/kg (285-295); Potassium 3.9 mmol/L (3.5-5.1); Sodium 133 mmol/L (136-145)
[2024-03-10 07:55] VITALS: BP 149/78; PULSE 87; RESP 17; TEMP 36.9; O2SAT 95
--- NOTE | 2024-03-10 08:27 | PM.PN ---
Subjective Subjective: This is a 58-year-old male who is postoperative day 2 status post laparoscopic appendectomy for perforated acute appendicitis. I have been asked to follow the patient over the weekend as my colleague Dr. Haque will be out of town. He is doing well over the last 24 hours, abdominal pain has improved, has remained afebrile, has tolerated diet and had several bowel movements. Vitals/I&O/Wt Last Vital Signs Temp 98.4 F 03/10/24 07:55 Pulse 87 03/10/24 07:55 Resp 17 03/10/24 07:55 BP 149/78 03/10/24 07:55 Pulse Ox 95 03/10/24 07:55 O2 Del Method Nasal Cannula 03/10/24 07:55 O2 Flow Rate 9 03/09/24 23:37 FiO2 3 03/08/24 20:41 03/09/24 03/10/24 03/10/24 22:59 06:59 14:59 Intake Total 1410 / 1770 1050 / 2820 50 / 50 Output Total 25 / 25 Balance 1410 / 1770 1025 / 2795 50 / 50 Weight last 48 hrs Weight 230 lb 8 oz Weight 230 lb 9.6 oz Physical Exam GI: OTHER: Abdomen is soft, appropriately tender to palpation, VINICIO drain is in place with some serosanguineous output. Urinary Catheter Management: Phipps: Cath Placed During This Visit: yes Reason for Continuing Indwelling Catheter: Other Urinary Catheter Date of Insertion: 03/08/24 Urinary Catheter Time of Insertion: 04:00 Data 03/10/24 04:48 03/10/24 04:48 A&P Assessment and plan (1) Acute gangrenous appendicitis with perforation and peritonitis: Plan Patient is showing adequate progression after laparoscopic appendectomy for perforated acute appendicitis. The plan is to continue current diet, encourage ambulation, encourage incentive spirometer use. Per my discussion with Dr. Haque he would like to keep the patient until Wednesday and have a repeat CAT scan before he is discharged home. I have discussed the findings with the patient as well as the results of his workup and he is agreeable with this plan. Attestations Medical Necessity Statement*: Patient will stay until Wednesday for repeat CAT scan and continues IV antibiotics for perforated acute appendicitis with abscess Coding Level of Care Code Acute Code for [facility] Fwd Diagnoses Acute gangrenous appendicitis with perforation and peritonitis K35.32
[2024-03-10 11:37] VITALS: BP 165/81; PULSE 92; RESP 20; TEMP 36.7; O2SAT 93
[2024-03-10] MEDS: heparin 5,000 unit/mL INJ 1 mL 5000 UNIT SUBCUT ×2 (12:32→23:47)
[2024-03-10 15:25] VITALS: BP 177/84; PULSE 91; RESP 17; TEMP 36.8; O2SAT 94
[2024-03-10] MEDS: ondansetron 2 mg/ML SDV 2 mL 4 MG IVP (19:55)
[2024-03-10 20:00] VITALS: BP 154/90; PULSE 86; RESP 19; TEMP 37.1; O2SAT 94
[2024-03-10 23:51] VITALS: BP 163/76; PULSE 90; RESP 20; TEMP 36.9; O2SAT 90
[2024-03-11] VITALS (7 sets, daily range): BP systolic 146–164; BP diastolic 62–87; PULSE 74–91; RESP 18–20; TEMP 36.7–37.1; O2SAT 91–93
[2024-03-11] MEDS: piperacillin-tazobactam 3.375 GM in sodium chloride 0.9% (plus) 50 ML IV ×3 (03:53→20:13)
[2024-03-11 04:01] LABS: Basophils # 0.1 10^3/uL (0.0-0.1); Basophils % 0.5 %; Eosinophils # 0.1 10^3/uL (0.0-0.8); Eosinophils % 0.4 %; Hematocrit 40.2 % (37-53); Lymphocytes # 1.3 10^3/uL (0.8-4.8); Lymphocytes % 10.5 %; Mean Corpuscular HGB Conc 33.1 g/dL (30-55); Mean Corpuscular Hemoglobin 29.8 pg (27-33); Mean Corpuscular Volume 90.1 fl (82-101); Mean Platelet Volume 10.1 fL (7.4-10.4); Monocytes # 1.2 10^3/uL (0.2-0.9); Monocytes % 9.9 %; Neutrophils % 78.1 %; Nucleated Red Blood Cells % 0 %; Platelet Count 238 10^3/cmm (157-399); Red Blood Count 4.46 10^6/uL (3.85-5.65); Red Cell Distribution Width 13.1 % (12.1-15.1); White Blood Count 12.16 10^3/uL (3.29-11.43)
[2024-03-11 04:32] LABS: Blood Urea Nitrogen 17 mg/dL (8-23); Calcium 8.8 mg/dL (8.5-10.5); Carbon Dioxide 26 mmol/L (22-29); Chloride 95 mmol/L (98-107); Creatinine Clr Calc Pharmacy 150.8911; Glomerular Filtration Rate 137.4 mL/min (90-130); Glucose 109 mg/dL (65-115); Magnesium 2.4 mg/dL (1.7-2.3); Osmolality Calculated 278 mOsm/kg (285-295); Sodium 133 mmol/L (136-145)
--- NOTE | 2024-03-11 09:27 | PM.PN ---
Subjective Subjective: Postoperative day 3 status post laparoscopic appendectomy for perforated appendicitis with abscess. Patient diet was de-escalated overnight, yesterday morning after having back to breakfast he had 1 episode of vomiting none since then but I decided that probably is too early for him to have a regular diet and we have put him on clears, he is tolerating as of now. Continues to pass gas and has had a bowel movements. Minimal abdominal pain mostly located in the right lower quadrant. VINICIO output is about 250 cc of seropurulent fluid. Vitals/I&O/Wt Last Vital Signs Temp 98.2 F 03/11/24 08:00 Pulse 79 03/11/24 08:00 Resp 18 03/11/24 08:00 BP 146/85 03/11/24 08:00 Pulse Ox 93 03/11/24 08:00 O2 Del Method Room Air 03/11/24 04:00 O2 Flow Rate 9 03/09/24 23:37 FiO2 3 03/08/24 20:41 03/10/24 03/11/24 03/11/24 22:59 06:59 14:59 Intake Total 50 / 1220 50 / 1270 290 / 290 Output Total 150 / 151 75 / 226 Balance -100 / 1069 -25 / 1044 290 / 290 Weight last 48 hrs Weight 243 lb 8 oz Weight 230 lb 8 oz Physical Exam GI: OTHER: Abdomen is soft, minimally distended, some tenderness in the right lower quadrant in the area of the surgical site pathology and that overall benign abdominal exam, VINICIO drain with seropurulent fluid. Urinary Catheter Management: Phipps: Cath Placed During This Visit: yes Reason for Continuing Indwelling Catheter: Other Urinary Catheter Date of Insertion: 03/08/24 Urinary Catheter Time of Insertion: 04:00 Data 03/11/24 02:54 03/11/24 02:54 A&P Assessment and plan (1) Acute gangrenous appendicitis with perforation and peritonitis: Plan 58-year-old male who is postoperative day 3 status post laparoscopic appendectomy for perforated acute appendicitis.Patient progression has been adequate, he was started on regular diet immediately after surgery, he had 1 episode of vomiting the day following, this is likely due to a small component of ileus after a severe intra-abdominal infection. I have de-escalated the diet to clear liquid diet if he has any other episode vomits I will obtain an x-ray of the abdomen to verify the possibility of an ileus. I have explained to the patient that the plan is to continue antibiotic therapy and repeat a CT scan with contrast on Wednesday to evaluate for any presence of intra-abdominal fluid collections. His vital signs have remained stable he has been afebrile and his white count is 12 today. He will continue to ambulate use incentive spirometer and we will continue current management for now if he is tolerating clear liquids by tomorrow I may decide to advance him to a full liquid diet. Attestations Medical Necessity Statement*: Patient will require at least 48 hours of hospital stay for repeat CAT scan on Wednesday IV antibiotic management after perforated appendicitis with abscess and to advance diet slowly. Coding Level of Care Code Acute Code for [facility] Diagnoses Acute gangrenous appendicitis with perforation and peritonitis K35.32
[2024-03-11] MEDS: heparin 5,000 unit/mL INJ 1 mL 5000 UNIT SUBCUT (12:21)
[2024-03-11] MEDS: ketorolac 30 mg/mL INJ 15 MG IVP ×2 (12:21→18:12)
--- NOTE | 2024-03-11 13:49 | PC.NURSE ---
Dr. Alfredo called informed of increase in drainage from drain site and dressing changed. During dressing change the drain tube was stripped to ensure proper drainage. This showed that it is in fact draining properly. No changes at this time.
[2024-03-11] MEDS: lactated ringers 1,000 ML 75 ML IV (15:31)
--- NOTE | 2024-03-11 20:17 | PC.NURSE ---
LR paused during Zosyn infusion due to incompatibility.
[2024-03-12] MEDS: ketorolac 30 mg/mL INJ 15 MG IVP ×4 (00:23→18:04)
[2024-03-12] MEDS: heparin 5,000 unit/mL INJ 1 mL 5000 UNIT SUBCUT ×2 (00:23→13:12)
[2024-03-12 04:00] VITALS: BP 148/89; PULSE 79; RESP 19; TEMP 37; O2SAT 92
[2024-03-12] MEDS: piperacillin-tazobactam 3.375 GM in sodium chloride 0.9% (plus) 50 ML IV ×3 (04:40→20:29)
[2024-03-12 05:48] LABS: Basophils # 0.1 10^3/uL (0.0-0.1); Basophils % 0.6 %; Eosinophils # 0.2 10^3/uL (0.0-0.8); Eosinophils % 1.4 %; Lymphocytes # 1.7 10^3/uL (0.8-4.8); Lymphocytes % 14.6 %; Mean Corpuscular HGB Conc 34.1 g/dL (30-55); Mean Corpuscular Volume 87.8 fl (82-101); Mean Platelet Volume 9.6 fL (7.4-10.4); Monocytes # 1.5 10^3/uL (0.2-0.9); Monocytes % 12.3 %; Neutrophils # 8.24 10^3/uL (1.8-7.7); Neutrophils % 69.7 %; Nucleated Red Blood Cells % 0 %; Platelet Count 298 10^3/cmm (157-399); Red Blood Count 4.67 10^6/uL (3.85-5.65); Red Cell Distribution Width 13.3 % (12.1-15.1); White Blood Count 11.82 10^3/uL (3.29-11.43)
[2024-03-12 08:00] VITALS: BP 149/90; PULSE 71; RESP 18; TEMP 36.8; O2SAT 94
--- NOTE | 2024-03-12 09:11 | PM.PN ---
Subjective Subjective: Postoperative day 4 status post laparoscopic appendectomy for perforated acute appendicitis with abscess. Patient is doing okay over the last 24 hours, tolerated clear liquid diet, no significant abdominal pain, has been ambulating. Having bowel function. Vitals/I&O/Wt Last Vital Signs Temp 98.2 F 03/12/24 08:00 Pulse 71 03/12/24 08:00 Resp 18 03/12/24 08:00 BP 149/90 03/12/24 08:00 Pulse Ox 94 03/12/24 08:00 O2 Del Method Room Air 03/12/24 08:00 O2 Flow Rate 9 03/09/24 23:37 FiO2 3 03/11/24 20:41 03/11/24 03/12/24 03/12/24 22:59 06:59 14:59 Intake Total 761.25 / 1531.25 378.75 / 1910.00 410 / 410 Output Total 90 / 90 25 / 115 Balance 671.25 / 1441.25 353.75 / 1795.00 410 / 410 Weight last 48 hrs Weight 244 lb 4.8 oz Weight 243 lb 8 oz Physical Exam GI: OTHER: Abdomen is soft, minimally tender to palpation, minimally distended. VINICIO drain in place with seropurulent output. Urinary Catheter Management: Phipps: Cath Placed During This Visit: yes Reason for Continuing Indwelling Catheter: Other Urinary Catheter Date of Insertion: 03/08/24 Urinary Catheter Time of Insertion: 04:00 Data 03/12/24 05:32 03/11/24 02:54 Micro: Microbiology 03/07/24 22:15 Blood Culture - Preliminary Blood A&P Assessment and plan (1) Acute gangrenous appendicitis with perforation and peritonitis: Plan Patient is showing good progression after laparoscopic appendectomy for perforated appendicitis with abscess. Now he is tolerating clear liquid diet and will be advanced to full liquids, he continues to ambulate vital signs are normal the white count continues to trend down. The plan is to repeat that CAT scan tomorrow morning and after CT depending on the results patient may be able to transition to the outpatient setting. Attestations Medical Necessity Statement*: Patient required 1 to 2 days of hospital stay for management of perforated acute appendicitis with abscess Coding Level of Care Code Acute Code for [facility] Diagnoses Acute gangrenous appendicitis with perforation and peritonitis K35.32
[2024-03-12 11:35] VITALS: BP 176/92; PULSE 75; RESP 18; TEMP 36.3; O2SAT 95
[2024-03-12 11:41] LABS: Anion Gap 14.8 (5-19); Blood Urea Nitrogen 13 mg/dL (8-23); Calcium 8.6 mg/dL (8.5-10.5); Carbon Dioxide 26 mmol/L (22-29); Chloride 99 mmol/L (98-107); Creatinine Clr Calc Pharmacy 133.3098; Glucose 120 mg/dL (65-115); Magnesium 2.1 mg/dL (1.7-2.3); Osmolality Calculated 283 mOsm/kg (285-295); Potassium 3.8 mmol/L (3.5-5.1); Sodium 136 mmol/L (136-145)
[2024-03-12 16:00] VITALS: BP 155/77; PULSE 70; RESP 18; TEMP 37; O2SAT 94
[2024-03-12] MEDS: lactated ringers 1,000 ML 75 ML IV (18:03)
[2024-03-12 19:57] VITALS: BP 148/82; PULSE 71; RESP 19; TEMP 37; O2SAT 91
[2024-03-12 23:44] VITALS: BP 149/84; PULSE 71; RESP 20; TEMP 37.2; O2SAT 93
[2024-03-13] MEDS: heparin 5,000 unit/mL INJ 1 mL 5000 UNIT SUBCUT ×2 (00:39→11:28)
--- NOTE | 2024-03-13 00:47 | PC.NURSE ---
Patient states that he doesn't want to take that pain medicine anymore because it is causing him to have terrible, vivid nightmares. He states I've never had nightmares like this before. Patient educated that Toradol is an NSAID, which is very similar to Ibuprofen and does not have the side effect of causing nightmares. Patient states I looked it up online and it says it can cause bloating. I'm trying to get rid of this gas. Patient educated that the bloating and gas is from his abdominal surgery. Patient educated that some of the side effects listed online could be false information or could be very rare side effects. Patient educated that the benefit of taking the medication is greater than the risk. Patient is alert and oriented x4. Even after education, patient is still refusing Toradol.
[2024-03-13] MEDS: piperacillin-tazobactam 3.375 GM in sodium chloride 0.9% (plus) 50 ML IV ×2 (03:26→13:05)
[2024-03-13 04:00] VITALS: BP 166/82; PULSE 67; RESP 19; TEMP 36.7; O2SAT 91
[2024-03-13 06:02] LABS: Basophils # 0.1 10^3/uL (0.0-0.1); Basophils % 0.8 %; Eosinophils # 0.2 10^3/uL (0.0-0.8); Eosinophils % 1.7 %; Hematocrit 39.2 % (37-53); Lymphocytes # 1.8 10^3/uL (0.8-4.8); Lymphocytes % 15.7 %; Mean Corpuscular HGB Conc 33.7 g/dL (30-55); Mean Corpuscular Volume 89.1 fl (82-101); Mean Platelet Volume 9.4 fL (7.4-10.4); Monocytes # 1.5 10^3/uL (0.2-0.9); Monocytes % 12.6 %; Neutrophils # 7.74 10^3/uL (1.8-7.7); Neutrophils % 66.9 %; Nucleated Red Blood Cells % 0 %; Platelet Count 315 10^3/cmm (157-399); Red Cell Distribution Width 13.2 % (12.1-15.1); White Blood Count 11.55 10^3/uL (3.29-11.43)
[2024-03-13 06:21] LABS: Anion Gap 18.6 (5-19); Blood Urea Nitrogen 10 mg/dL (8-23); Calcium 8.9 mg/dL (8.5-10.5); Carbon Dioxide 25 mmol/L (22-29); Chloride 95 mmol/L (98-107); Creatinine Clr Calc Pharmacy 156.1659; Glomerular Filtration Rate 137.4 mL/min (90-130); Glucose 113 mg/dL (65-115); Osmolality Calculated 280 mOsm/kg (285-295); Potassium 3.6 mmol/L (3.5-5.1); Sodium 135 mmol/L (136-145)
[2024-03-13 08:00] VITALS: BP 157/87; PULSE 70; RESP 17; TEMP 36.9; O2SAT 92
[2024-03-13 08:02] LABS: Slide Review Slide Review Perform
--- NOTE | 2024-03-13 08:27 | CT_ITS ---
WS: [id number] CT ABDOMEN PELVIS TECHNIQUE: Contrast-enhanced CT of the abdomen and pelvis with coronal and sagittal reformatted image s. CLINICAL INFORMATION: Intra abdominal collection after appendectomy COMPARISON: CT 03/07/2024 DLP: 1016.[address] scans at [facility] use at least one of these dose optimization techniques: automated e xposure control; mA and/or kV adjustment per patient size (includes targeted exams where dose is matc hed to clinical indication); or iterative reconstruction. FINDINGS: Recent postoperative changes appendectomy. Postoperative changes in the RIGHT lower quadrant. Tiny am ount of induration in the appendectomy bed. No fluid collections or abscess in the RIGHT lower quadra nt. Trace fluid in the pelvis with the drain in good position in the dependent pelvis. Images in the pelvis degraded due to beam hardening artifact from bilateral THAs. Distention of small bowel loops with air-fluid levels likely due to postoperative ileus. Small bowel loops measure up to 3.4 cm. Distal small bowel loops are decompressed. Atelectasis in the lung bases and RIGHT middle lobe. Trace pleural fluid RIGHT greater than LEFT. No other significant changes compared to the preoperative study. CT/CT abdomen pelvis w con* [id number] IMPRESSION: 1. Recent postoperative changes appendectomy. Surgical drain in the pelvis. No evidence of drainable fluid collection or abscess. 2. Surgical drain in good position with tip in the pelvis. 3. Presumed postoperative small bowel ileus. Colon is decompressed. 4. Trace bilateral pleural fluid RIGHT greater than LEFT with bibasilar atelec tasis.
[2024-03-13 12:00] VITALS: BP 157/81; PULSE 71; RESP 16; TEMP 37.1; O2SAT 93
[2024-03-13] MEDS: iohexol 350 mg/mL 500 mL Btl (per mL) PO (12:08)
[2024-03-13] MEDS: iohexol 350 mg/mL 500 mL Btl (per mL) IV (12:08)
--- NOTE | 2024-03-13 14:30 | P.DS_ITS ---
Discharge Providers Date of Admission: 03/08/24 11:05 Date of Discharge: March 13, 2024 Attending Provider at Admission: Yeyo Guajardo MD Attending Provider at Discharge: Ricky Haque DO Primary Care Provider: Bree Bryan MD Diagnoses at Discharge Discharge Diagnosis (1) Acute gangrenous appendicitis with perforation and peritonitis: Status: Acute Reason for Visit Reason for Visit: ABD PAIN Hospital Course Hospital Course This is a very pleasant 58-year-old gentleman who presented to the hospital with abdominal pain. He was diagnosed with acute appendicitis. He underwent laparoscopic appendectomy and was found to have acute perforated and gangrenous appendicitis with abscess formation. A surgical drain was placed during the surgery. He stayed for 5 days postoperatively for IV antibiotics and drainage. A repeat CT done prior to discharge showed only postoperative findings and small bowel ileus without any drainable fluid collection. His drain was removed and he was discharged home with antibiotics in good condition Physical Exam Narrative: General : Patient is well developed , no acute distress, oriented x3 Head : Normal cephalic, a-traumatic. Ears : Pinnae and external canal are normal. Hearing is normal. Eyes : PERRLA, Sclera and injection are normal. No conjunctival discharge. Nose : Mucous membranes are without erythema. Throat : buccal mucosa is normal, gums are without significant recession or hypertrophy. Lungs : Equal chest rise bilaterally, no use of accessory muscles, trachea is midline. Cor : Rate and rhythm are normal. Abdomen : Soft, ND, appropriately tender, no g/r/m Drain: Serous Extremities : No edema, no cyanosis or clubbing, dorsalis pedis pulses are present bilaterally, non-tender to palpation of calves. Upper extremities are normal bilaterally. Back : non-tender to palpation, no CVA tenderness. Neuro : CN II - XII intact, Upper and lower extremities have equal and full strength Urinary Catheter Management: Phipps: Cath Placed During This Visit: yes Reason for Continuing Indwelling Catheter: Other Urinary Catheter Date of Insertion: 03/08/24 Urinary Catheter Time of Insertion: 04:00 Discharge Data Studies Completed and Pending Completed Studies During Hospitalization Category Date Time Status CT abdomen pelvis w con* [id number] Routine Cat Scan 03/13/24 08:[address] abdomen pelvis w con* [id number] Stat Cat Scan 03/07/24 19:21 Completed Pending at discharge Category Date Time Status Blood Culture Stat Lab 03/07/24 22:10 Results Pathology: Surgical [PTH] Routine Pth 03/08/24 19:12 Received Radiology Impressions Abdomen/Pelvis CT 03/13/24 08:27 IMPRESSION: 1. Recent postoperative changes appendectomy. Surgical drain in the pelvis. No evidence of drainable fluid collection or abscess. 2. Surgical drain in good position with tip in the pelvis. 3. Presumed postoperative small bowel ileus. Colon is decompressed. 4. Trace bilateral pleural fluid RIGHT greater than LEFT with bibasilar atelectasis. Laboratory Results WBC 11.55 10^3/uL (3.29-11.43) H 03/13/24 05:53 RBC 4.40 10^6/uL (3.85-5.65) 03/13/24 05:53 Hgb 13.20 g/dL (11.27-16.99) 03/13/24 05:53 Hct 39.2 % (37-53) 03/13/24 05:53 MCV 89.1 fl (82-101) 03/13/24 05:53 MCH 30.0 pg (27-33) 03/13/24 05:53 MCHC 33.7 g/dL (30-55) 03/13/24 05:53 RDW 13.2 % (12.1-15.1) 03/13/24 05:53 Plt Count 315 10^3/cmm (157-399) 03/13/24 05:53 MPV 9.4 fL (7.4-10.4) 03/13/24 05:53 Neut % (Auto) 66.9 % 03/13/24 05:53 Lymph % (Auto) 15.7 % 03/13/24 05:53 [place] % (Auto) 12.6 % 03/13/24 05:53 Eos % (Auto) 1.7 % 03/13/24 05:53 Baso % (Auto) 0.8 % 03/13/24 05:53 Neut # (Auto) 7.74 10^3/uL (1.8-7.7) H 03/13/24 05:53 Lymph # (Auto) 1.8 10^3/uL (0.8-4.8) 03/13/24 05:53 [place] # (Auto) 1.5 10^3/uL (0.2-0.9) H 03/13/24 05:53 Eos # (Auto) 0.2 10^3/uL (0.0-0.8) 03/13/24 05:53 Baso # (Auto) 0.1 10^3/uL (0.0-0.1) 03/13/24 05:53 Nucleated RBC % (auto) 0 % 03/13/24 05:53 Nucleated RBCs # 0.0 /100WBC 03/13/24 05:53 Sodium 135 mmol/L (136-145) L 03/13/24 05:53 Potassium 3.6 mmol/L (3.5-5.1) 03/13/24 05:53 Chloride 95 mmol/L (98-107) L 03/13/24 05:53 Carbon Dioxide 25 mmol/L (22-29) 03/13/24 05:53 Anion Gap 18.6 (5-19) 03/13/24 05:53 BUN 10 mg/dL (8-23) 03/13/24 05:53 Creatinine 0.6 mg/dL (0.7-1.2) L 03/13/24 05:53 GFR Calculation 137.4 mL/min (90-130) H 03/13/24 05:53 Glucose 113 mg/dL (65-115) 03/13/24 05:53 Calculated Osmolality 280 mOsm/kg (285-295) L 03/13/24 05:53 Lactic Acid 2.2 mmol/L (0.5-2.2) 03/07/24 19:30 Lactic Acid (Sepsis) 1.6 mmol/L (0.5-2.2) 03/07/24 22:10 Calcium 8.9 mg/dL (8.5-10.5) 03/13/24 05:53 Magnesium 2.1 mg/dL (1.7-2.3) 03/12/24 11:18 Total Bilirubin 0.7 mg/dL (0.15-1.2) 03/07/24 19:20 AST 15 U/L (0-40) 03/07/24 19:20 ALT 19 U/L (0-41) 03/07/24 19:20 Alkaline Phosphatase 55 U/L (40-130) 03/07/24 19:20 Total Protein 7.6 g/dL (6.6-8.7) 03/07/24 19:20 Albumin 4.2 g/dL (3.5-5.2) 03/07/24 19:20 Globulin 3.4 g/dL (1.3-4.6) 03/07/24 19:20 Lipase 14 U/L (13-60) 03/07/24 19:20 Urine Color Yellow (Yellow) 03/07/24 22:50 Urine Appearance Clear (CLEAR) 03/07/24 22:50 Urine pH 5.5 (5-7) 03/07/24 22:50 Ur Specific [place] >= 1.099 (1.005-1.030) H 03/07/24 22:50 Urine Protein 1+ (Negative) A 03/07/24 22:50 Urine Glucose (UA) Negative (Normal) 03/07/24 22:50 Urine Ketones Negative (Negative) 03/07/24 22:50 Urine Blood Negative (Negative) 03/07/24 22:50 Urine Nitrate Negative (Negative) 03/07/24 22:50 Urine Bilirubin Negative (Negative) 03/07/24 22:50 Urine Urobilinogen 1.0 mg/dL (Negative) 03/07/24 22:50 Ur Leukocyte Esterase Negative (Negative) 03/07/24 22:50 Urine RBC 0-4 /hpf (0-2) H 03/07/24 22:50 Urine WBC None /hpf (0-5) 03/07/24 22:50 Ur Squamous Epith Cells None /hpf (0-5) 03/07/24 22:50 Amorphous Sediment Not Reportable 03/07/24 22:50 Urine Bacteria None /hpf (NONE) 03/07/24 22:50 Procedures Performed Laparoscopic appendectomy Vitals Last Vital Signs Temp 98.7 F 03/13/24 12:00 Pulse 71 03/13/24 12:00 Resp 16 03/13/24 12:00 BP 157/81 03/13/24 12:00 Pulse Ox 93 03/13/24 12:00 O2 Del Method Room Air 03/13/24 08:00 O2 Flow Rate 9 03/09/24 23:37 FiO2 3 03/11/24 20:41 Discharge Plan Discharge Patient Disposition: Home Condition: Stable Prescriptions: New hydrocodone-acetaminophen 7.5-325 mg tablet 1 tab PO Q6H PRN (Reason: pain) Qty: 20 0RF docusate sodium [Colace] 100 mg capsule 100 mg PO BID Qty: 14 0RF polyethylene glycol 3350 [Miralax] 17 gram/dose powder 17 g PO DAILY 14 Days Qty: 238 0RF ondansetron 8 mg tablet,disintegrating 8 mg PO Q8H PRN (Reason: nausea and vomiting) 7 Days Qty: 20 0RF amoxicillin-pot clavulanate 875-125 mg tablet 1 tab PO BID 9 Days Qty: 18 0RF Continued ibuprofen 200 mg tablet 200 mg PO Q6H PRN (Reason: Pain) acetaminophen [Tylenol Extra Strength] 500 mg tablet 500 mg PO Q6H PRN (Reason: Pain) amlodipine 10 mg tablet 10 mg PO DAILY Qty: 90 3RF atorvastatin 10 mg tablet 10 mg PO DAILY Qty: 90 3RF losartan 50 mg tablet 50 mg PO DAILY Qty: 90 3RF Discharge Orders: Discharge Order (Routine); Ordered 03/13/24 Ordered By: Ricky Haque Referrals: Ricky Haque DO [Physician] - 2 weeks (We have notified your physician's clinic of the need for a follow-up appointment to be scheduled. If you have not heard from them within the next 2 business days, please call them directly. ) Bree Bryan MD [Primary Care Provider] - 4-7 days (We have notified your physician's clinic of the need for a follow-up appointment to be scheduled. If you have not heard from them within the next 2 business days, please call them directly. ) Discharge Diet: Advance as tolerated Discharge Activity: Resume usual activity Patient Instructions: Appendicitis (GEN), Acute Wound Care (DC), Opioid Safety, Post Anesthesia Care Activity Restrictions/Additional Instructions: Leave dressing on over drain removal site for 2 days and then remove. Do not soak incisions underwater for 2 weeks. Shower regularly. Discharge Attestations Time Spent in Discharge Care*: less than 30 min Quality Metrics Clinical Quality Measures [ No reported AMI, CVA or VTE this stay] Coding Level of Care Code Acute Code for [facility] Diagnoses Acute gangrenous appendicitis with perforation and peritonitis K35.32
--- NOTE | 2024-03-13 14:38 | PC.SOCIAL ---
IMM Updated. Updated pt on IMM. No questions voiced. Provided pt a copy. Initialed, dated, & timed a copy & placed in chart.
[2024-03-13 16:00] VITALS: BP 127/79; PULSE 85; RESP 18; TEMP 36.8; O2SAT 93
--- NOTE | 2024-03-13 16:32 | PC.NURSE ---
German drain removed prior to d/c. 4x4 and tegaderm applied. pt tolerated well
[2024-03-13 16:33] VITALS: BP 127/79; PULSE 85; RESP 18; TEMP 36.8; O2SAT 93
== END 2024-03-13 15:55 | disposition home or self-care (01) | DRG 399 ==
LOC: ER 21:14 → MEDSURG 21:30
PROVIDERS: Surgery; Admitting Provider Internal Medicine; Emergency Provider Emergency Medicine; PCP Family Medicine; Visit Provider Surgery
PROC: 0DTJ4ZZ Resection of Appendix, Percutaneous Endoscopic Approach (ICD-10-PCS; CPT 44970; principal; 2024-03-08 17:25)
DX: K35.33 Acute appendicitis with perforation, localized peritonitis, and gangrene, with abscess (principal); I10 Essential (primary) hypertension; Z87.891 Personal history of nicotine dependence
CPT/HCPCS: 36415; 51702; 74177; 80048; 80053; 81001; 83605; 83690; 83735; 85025; 87040; 87077; 87150; 87205; 88304; 93005; 94664; 96365; 96372; 96375; 96376; 99285; A7003; G0378; J0131; J1100; J1171; J1644; J1885; J2270; J2405; J2543; J2704; J3010; J3490; J7030; J7120; J7613

== ENCOUNTER → 2024-03-20 13:44 | Outpatient (BNVA) | payer MEDICARE, OTHER, SELFPAY | PROVIDERS: PCP Family Medicine; Visit Provider Surgery | DX: Z90.49 Acquired absence of other specified parts of digestive tract (principal) | CPT/HCPCS: 99024 ==

== ENCOUNTER → 2024-04-05 15:54 | Outpatient (BNVA) | payer MEDICARE, OTHER, SELFPAY | PROVIDERS: PCP Family Medicine; Visit Provider Podiatrist Foot & Ankle Surgery | DX: B35.1 Tinea unguium (principal); G62.9 Polyneuropathy, unspecified; I73.9 Peripheral vascular disease, unspecified | CPT/HCPCS: 11721 ==

== ENCOUNTER → 2024-06-07 15:15 | Outpatient (BNVA) | payer MEDICARE, OTHER, SELFPAY | PROVIDERS: PCP Family Medicine; Visit Provider Podiatrist Foot & Ankle Surgery | DX: I73.9 Peripheral vascular disease, unspecified (principal); B35.1 Tinea unguium; G62.9 Polyneuropathy, unspecified | CPT/HCPCS: 11721 ==

== ENCOUNTER → 2024-08-14 13:20 | Outpatient (BNVA) | payer MEDICARE, OTHER, SELFPAY | PROVIDERS: PCP Family Medicine; Visit Provider Podiatrist Foot & Ankle Surgery | DX: I73.9 Peripheral vascular disease, unspecified (principal); B35.1 Tinea unguium; G62.9 Polyneuropathy, unspecified | CPT/HCPCS: 11721 ==

== ENCOUNTER → 2024-10-18 09:51 | Outpatient (BNVA) | payer MEDICARE, OTHER, SELFPAY | PROVIDERS: PCP Internal Medicine; Visit Provider Podiatrist Foot & Ankle Surgery | DX: I73.9 Peripheral vascular disease, unspecified (principal); B35.1 Tinea unguium; G62.9 Polyneuropathy, unspecified | CPT/HCPCS: 11721 ==

== ENCOUNTER → 2024-12-28 07:59 | Outpatient (BNVA) | payer MEDICARE, OTHER, SELFPAY | PROVIDERS: PCP Internal Medicine; Visit Provider Podiatrist Foot & Ankle Surgery | DX: I73.9 Peripheral vascular disease, unspecified (principal); B35.1 Tinea unguium; L84 Corns and callosities; G62.9 Polyneuropathy, unspecified | CPT/HCPCS: 11055; 11721 ==